=== PATIENT | male | born 1970 | race American Indian/Alaskan Native ===

== ENCOUNTER 2018-04-24 13:16 | Emergency (ER) | payer MEDICARE, OTHER ==
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
== END 2018-04-24 16:53 | disposition home or self-care (01) ==
LOC: ED 13:16
CPT/HCPCS: 99282

== ENCOUNTER 2018-06-02 14:41 | Emergency (ER) | payer MEDICARE ==
[2018-06-02] MEDS ORDERED: TETRACAINE 0.5% OU ONE (19:09)
[2018-06-02] MEDS ORDERED: NORCO 5/325 PO ONE ×2 (19:09→22:48)
[2018-06-02] MEDS ORDERED: FUL-GLO OP ONE (19:10)
[2018-06-02] MEDS ORDERED: BSS OU ONE (19:10)
[2018-06-02] MEDS ORDERED: TETRACAINE 0.5% ONE (19:16)
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
[2018-06-02] MEDS ORDERED: BOOSTRIX IM ONE (21:56)
[2018-06-02] MEDS ORDERED: NORCO 5/325 ONE (22:48)
[2018-06-03 01:38] VITALS: BP 134/76
== END 2018-06-02 23:50 | disposition other institution (70) ==
LOC: ED 14:41
DX: S02.30XA Fracture of orbital floor, unspecified side, initial encounter for closed fracture (principal); S05.01XA Injury of conjunctiva and corneal abrasion without foreign body, right eye, initial encounter; S00.11XA Contusion of right eyelid and periocular area, initial encounter; J45.909 Unspecified asthma, uncomplicated; F17.200 Nicotine dependence, unspecified, uncomplicated; W51.XXXA Accidental striking against or bumped into by another person, initial encounter; Y93.89 Activity, other specified; Y92.89 Other specified places as the place of occurrence of the external cause; Y99.8 Other external cause status
CPT/HCPCS: 70480; 90471; 90715

== ENCOUNTER 2018-09-02 13:20 | Emergency (ER) | payer MEDICARE ==
[2018-09-02 13:30] VITALS: BP 126/90
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
[2018-09-02] MEDS ORDERED: TYLENOL PO ONE (16:47)
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
== END 2018-09-02 17:55 | disposition home or self-care (01) ==
LOC: ED 13:20
DX: S20.211A Contusion of right front wall of thorax, initial encounter (principal); S80.811A Abrasion, right lower leg, initial encounter; J45.909 Unspecified asthma, uncomplicated; Z88.6 Allergy status to analgesic agent; V49.59XA Passenger injured in collision with other motor vehicles in traffic accident, initial encounter; Y93.89 Activity, other specified; Y92.410 Unspecified street and highway as the place of occurrence of the external cause; Y99.8 Other external cause status